=== PATIENT | female | born 1975 | race Caucasian/White ===

== ENCOUNTER 2020-04-21 15:34 | Emergency (ER) | payer OTHER ==
[~2020-04-21] VITALS: Ht 162.6 cm; Wt 58.1 kg
[2020-04-21] MEDS ORDERED: AMBIEN 10 MG TA10 MG PO (15:48)
[2020-04-21] MEDS ORDERED: XANAX 0.5 MG0.5 M1 PO (15:48)
[2020-04-21 16:40] LABS: ABSOLUTE NEUTROPHILS 2.8 thou/uL (1.4-8.2); BASOPHILS 0.8 % (0.0-2.0); EOSINOPHILS 3.2 % (0.0-3.0); HEMATOCRIT 39.2 % (37.0-47.0); HEMOGLOBIN 13.5 gm/dL (12.0-15.0); LYMPHOCYTES 34.6 % (24.0-44.0); MCH 34.3 pg (26.0-34.0); MCHC 34.5 g/dL (28.0-37.0); MCV 99.4 fL (80.0-100.0); MONOCYTES 10.3 % (1.0-8.0); PLATELET COUNT 198 thou/uL (150-400); POLYS 51.1 % (36.0-66.0); RBC 3.94 mil/uL (4.20-5.00); RDW 13.8 % (10.5-14.5); WBC 5.5 thou/uL (4.0-11.0)
[2020-04-21 16:44] LABS: URINE BILIRUBIN NEGATIVE (Negative); URINE BLOOD NEGATIVE (Negative); URINE CLARITY CLEAR; URINE COLOR YELLOW; URINE GLUCOSE-RANDOM* NEGATIVE (Negative); URINE KETONES NEGATIVE (Negative); URINE LEUKOCYTES-REFLEX NEGATIVE (Negative); URINE NITRITE-REFLEX NEGATIVE (Negative); URINE PROTEIN (DIPSTICK) NEGATIVE (Negative); URINE UROBILINOGEN 0.2 E.U./dl (0.2-1.0)
[2020-04-21 16:44] LABS: CALCIUM 8.5 mg/dL (8.5-10.1); CREATININE 0.8 mg/dL (0.6-1.0); POTASSIUM 3.5 mmol/L (3.5-5.1)
[2020-04-21 16:50] LABS: ALBUMIN 3.7 g/dL (3.4-5.0); TOTAL BILIRUBIN 0.5 mg/dL (0.2-1.0); TOTAL PROTEIN 6.8 g/dL (6.4-8.2)
[2020-04-21] MEDS ORDERED: BENTYL 20 MG TA20 M1 PO (23:12)
[2020-04-21] MEDS ORDERED: NORCO 5-325 TA1 EAC1 PO (23:12)
[2020-04-21 23:17] VITALS: BP 113/59
== END 2020-04-21 23:18 | disposition home or self-care (01) ==
LOC: ER 15:34
PROVIDERS: Emergency Medicine
DX: R10.31 Right lower quadrant pain (principal); R19.7 Diarrhea, unspecified; Z79.899 Other long term (current) drug therapy